=== PATIENT | female | born 1970 | race Two or more races ===

== ENCOUNTER 2018-06-26 18:21 | Emergency (ER) | payer OTHER, SELFPAY ==
[~2018-06-26] VITALS: Ht 157.5 cm; Wt 59.0 kg
[2018-06-26] MEDS ORDERED: LIDOCAINE HCL/PF 1% 10 MG/ML 5ML VIAL IJ ONE (22:30)
[2018-06-26] MEDS ORDERED: BACITRACIN ZINC OINT UDPKT TOP ONE (22:30)
[2018-06-26] MEDS ORDERED: TETANUS, DIPHTHERIA, PERTUSSIS VAC/PF 0.5ML (>7YR OLD) IM ONE (22:30)
[2018-06-27 00:13] VITALS: BP 127/84
== END 2018-06-27 00:21 | disposition home or self-care (01) ==
LOC: ER 18:21
DX: S51.811A Laceration without foreign body of right forearm, initial encounter (principal); W18.39XA Other fall on same level, initial encounter; Y93.89 Activity, other specified; Y92.89 Other specified places as the place of occurrence of the external cause; Y99.8 Other external cause status
CPT/HCPCS: 12002; 90471; 90715; 99283; J3490